=== PATIENT | female | born 1950 | race Caucasian/White ===

== ENCOUNTER → 2020-03-17 12:30 | Outpatient (CLI) | payer MEDICARE, SELFPAY ==
--- NOTE | ~2020-03-17 | MM_ITS ---
EXAMINATION: MM screening oscar BI w syd HISTORY: Screening TECHNIQUE: Craniocaudal and mediolateral oblique 3-D tomosynthesis images were obtained and synthetic 2-D images were generated. CAD analysis was submitted and interpreted. COMPARISON: Comparison to multiple prior studies sequentially, with oldest reviewed study dated 01/13. BREAST PARENCHYMAL COMPOSITION: There are scattered areas of fibroglandular density. FINDINGS: There is no evidence of suspicious mass, calcification, or architectural distortion to sugg est malignancy in either breast. There has been no suspicious interval change. IMPRESSION: 1. No mammographic evidence of malignancy. 2. Recommend routine screening mammography in one year. BI-RADS Category 1: Negative Reviewed, dictated and finalized at location A.
== END ==
PROVIDERS: PCP Family Medicine; Visit Provider Obstetrics & Gynecology
DX: Z12.31 Encounter for screening mammogram for malignant neoplasm of breast (principal)
CPT/HCPCS: 77063; 77067

== ENCOUNTER 2021-03-24 13:32 | Outpatient (CLI) | payer MEDICARE, SELFPAY ==
--- NOTE | ~2021-03-24 | MM_ITS ---
EXAMINATION: MM screening oscar BI w syd HISTORY: Screening mammogram TECHNIQUE: Craniocaudal and mediolateral oblique 3-D tomosynthesis images were obtained and synthetic 2-D images were generated. Bilateral rotated lateral CC views. CAD analysis was submitted and interp reted. COMPARISON: 03/17/2020, 02/19/2019, 01/31/2018 bilateral digital screening mammogram examinations BREAST PARENCHYMAL COMPOSITION: There are scattered areas of fibroglandular density. FINDINGS: Occasional benign low-density circumscribed opacities, stable since 02/01/2000. There is no evidence of suspicious mass, calcification, or architectural distortion to suggest malignancy in eith er breast. There has been no suspicious interval change. IMPRESSION: 1. No mammographic evidence of malignancy. 2. Recommend routine screening mammography in one year. BI-RADS Category 2: Benign finding(s). Reviewed, dictated and finalized at location A.
== END 2021-03-24 13:33 | disposition home or self-care (01) ==
LOC: ANHIMG 13:35
PROVIDERS: PCP Family Medicine; Visit Provider Obstetrics & Gynecology
DX: Z12.31 Encounter for screening mammogram for malignant neoplasm of breast (principal)
CPT/HCPCS: 77063; 77067

== ENCOUNTER 2022-07-04 09:50 | Observation (INO) | payer MEDICARE, SELFPAY ==
[2022-07-04] VITALS (31 sets, daily range): BP systolic 96–133; BP diastolic 43–92; PULSE 57–117; RESP 12–24; TEMP 36.1–36.6; O2SAT 90–100
--- NOTE | ~2022-07-04 | XR_ITS ---
EXAMINATION: XR chest 1V portable DATE: 07/04/2022 10:22 INDICATION: Seizure. TECHNIQUE: A single frontal view of the chest was obtained. COMPARISON: None. FINDINGS: The lung volumes are small. There are is mild atelectasis bilaterally. No pleural effusion or pneumothorax. The heart size is normal. IMPRESSION: 1. Small lung volumes with mild bilateral atelectasis. Reviewed, dictated and finalized at location A. ICAL AIDE
--- NOTE | ~2022-07-04 | US_ITS ---
EXAMINATION: US venous doppler [facility] DATE: 07/04/2022 23:22 INDICATION: Lower limb edema. TECHNIQUE: Grayscale ultrasound images without and with compression and Doppler ultrasound images of the bilateral lower extremity veins were obtained. COMPARISON: Ultrasound 02/06/2014 FINDINGS: The visualized portions of right common femoral vein, profunda (deep) femoral vein, femoral vein, pop liteal vein, peroneal veins, posterior tibial veins, and greater saphenous vein outflow are patent. The visualized portions of left common femoral vein, profunda femoral vein, femoral vein, popliteal v ein, peroneal veins, posterior tibial veins, and greater saphenous vein outflow are patent. IMPRESSION: 1. No deep venous thrombosis. Reviewed, dictated and finalized at location A. LOPMENT TEAM LEAD
--- NOTE | ~2022-07-04 | CT_ITS ---
EXAMINATION: CT brain wo con DATE: 07/04/2022 10:32 INDICATION: Seizure TECHNIQUE: Computed tomography (CT) of the head was performed without intravenous contrast. Sagittal and coronal reconstructions were performed. The mA was adjusted according to patient size. Iterative reconstruction technique was employed. The dose-length product was 1210.67 mGy-cm. COMPARISON: None FINDINGS: There is a poorly defined approximately 3.3 x 2.7 x 2.1 cm complex mass along the septum pellucidum e xtending to the region of the left foramen of Barrientos containing regions of soft tissue density, fluid attenuation as well as a 13 x 7 x 5 mm macroscopic fat attenuation component most likely intracrania l teratoma with differential including intracranial dermoid or less likely lipomatous transformation of neoplasm. There is a second approximately 2.6 x 2.3 x 2.1 cm intra-axial region of mixed attenuati on in the left frontal lobe underlying a sridevi hole which could represent either postoperative change along the biopsy tract or a second neoplasm which could be either primary or metastatic. There is mod erate scattered white matter hypoattenuation consistent with chronic small vessel ischemic disease. N o acute intracranial hemorrhage, acute infarction or abnormal extra axial fluid collection. Symmetric prominence of the sulci and ventricles consistent with mild to moderate age-appropriate diffuse ce rebral volume loss. Changes of bilateral intraocular lens replacement. The orbits, paranasal sinuses and mastoid air cells are normal. IMPRESSION: 1. 3.3 x 2.7 x 2.1 cm complex mass along the septum pellucidum with mixed attenuation including macro scopic likely an intracranial teratoma or dermoid with differential including less likely lipomatous transformation of other neoplasm. There is a second 2.6 x 2.3 x 2.1 cm mixed attenuation lesion in th e left frontal lobe underlying a sridevi hole which could represent postoperative change along a biopsy tract directed towards the mass along the septum pellucidum or a second independent mass with differe ntial including malignancy either primary or metastatic. Recommend correlation with prior surgical hi story and any prior outside imaging. 2. Age-related changes including mild to moderate diffuse volume loss and moderate scattered white ma tter hypoattenuation consistent with chronic small vessel ischemic disease. Reviewed, dictated and finalized at location A. D AMBASSADOR PROMOTIONAL MODEL IMPRESSION: 1. 3.3 x 2.7 x 2.1 cm complex mass along the septum pellucidum with mixed atten uation including macroscopic likely an intracranial teratoma or dermoid with di fferential including less likely lipomatous transformation of other neoplasm. T here is a second 2.6 x 2.3 x 2.1 cm mixed attenuation lesion in the left fronta l lobe underlying a sridevi hole which could represent postoperative change along a biopsy tract directed towards the mass along the septum pellucidum or a secon d independent mass with differential including malignancy either primary or met astatic. Recommend correlation with prior surgical history and any prior outsid e imaging. 2. Age-related changes including mild to moderate diffuse volume loss and moder ate scattered white matter hypoattenuation consistent with chronic small vessel ischemic disease.
--- NOTE | 2022-07-04 10:03 | ECG_ITS ---
Measurements Intervals [place] Rate: 59 P: 47 PA: 167 QRS: 8 QRSD: 82 T: 42 QT: 425 QTc: 423 Interpretive Statements SINUS BRADYCARDIA DELAYED PRECORDIAL R/S TRANSITION BASELINE ARTIFACT- I, II, III, AVR, AVF, V1-V6 BORDERLINE ECG NO PREVIOUS ECG AVAILABLE FOR COMPARISON Electronically Signed On 07-04-2022 16:11:07 RADIOTELEGRAPH OPERATOR SERVICER by Marlo Godoy D.O.
[2022-07-04] MEDS: levETIRAcetam 500MG/NACL 100ML 500 MG/100 ML BAG 400 MG IVPB (10:15)
[2022-07-04] MEDS: DEXAMETHASONE SOD PHOS INJ 4 MG/ML VIAL IV PUSH ×2 (10:15→23:19)
[2022-07-04 11:06] LABS: Basophils Percent Auto 0.3 % (0.2-1.2); Eosinophils Percent Auto 0.4 % (0-4.4); Hematocrit 34.1 % (37.0-47.0); Hemoglobin 11.5 g/dL (12.0-15.0); Immature Granulocyte Percent A 1.3 % (0-0.5); Lymphocytes Absolute Auto 0.83 K/mm3 (0.9-3.2); Lymphocytes Percent Auto 10.5 % (18.3-44.2); Mean Corpuscular HGB Conc 33.7 g/dl (32-36); Mean Corpuscular Hemoglobin 34.2 pg (26-34); Mean Corpuscular Volume 101.5 fl (80-100); Mean Platelet Volume 10.4 fl (7.4-10.4); Monocytes Absolute Auto 0.8 K/mm3 (0.1-0.6); Monocytes Percent Auto 9.6 % (2.6-8.5); Neutrophils Absolute Auto 6.2 K/mm3 (1.3-6.7); Neutrophils Percent Auto 77.9 % (45.5-73.1); Platelet Count Result 144 k/mm3 (150-375); Red Blood Count 3.36 M/mm3 (4.2-5.4); Red Cell Distribution Width 15.2 % (11.5-14.5); White Blood Count 7.9 K/mm3 (4.5-10.0)
[2022-07-04 11:15] LABS: Lactic Acid Reflex 1.2 mmol/L (0.7-2.0)
[2022-07-04 11:17] LABS: INR 1.1; Prothrombin Time 13.8 Seconds (11.1-14.7)
[2022-07-04 11:18] LABS: Partial Thromboplastin Time 23.4 SECONDS (22.3-36.8)
[2022-07-04 11:21] LABS: Alanine Aminotransferase 39 U/L (6-35); Albumin Level 2.4 g/dL (3.5-5.1); Alkaline Phosphatase 47 U/L (38-126); Anion Gap 4 mmol/L (8-16); Aspartate Amino Transferase 28 U/L (14-36); Bilirubin,Total 0.5 mg/dL (0.2-1.3); Blood Urea Nitrogen 14 mg/dL (7-17); Calcium 5.8 mg/dL (8.4-10.2); Carbon Dioxide 23 mmol/L (22-30); Chloride 113 mmol/L (98-107); Estimated Glomerular Filt Rate > 60; Glucose 75 mg/dL (65-110); Potassium 2.4 mmol/L (3.4-5.0); Sodium 140 mmol/L (137-145)
[2022-07-04 12:17] LABS: Appearance Urine Clear (Clear); Bilirubin Urine Negative (Negative); Blood Urine Negative (Negative); Color Urine Yellow (Yellow); Glucose Urine UA Negative (Negative); Ketones Urine Negative (Negative); Leukocyte Esterase Ur Negative LEU/UL (Negative); Nitrate Urine Negative (Negative); Protein Urine Negative (Negative); pH Urine 7.5 (5.0-9.0)
[2022-07-04 12:24] LABS: Mucus Urine Rare /lpf; RBC Urine 0-2 /hpf (0-2); WBC Urine 0-3 /hpf
[2022-07-04 12:25] LABS: Add Urine Microscopic? YES
[2022-07-04] MEDS: POTASSIUM CHLORIDE INJ 40 MEQ in SODIUM CHLORIDE 0.9% IV 500 ML 130 MEQ IVPB (12:31)
[2022-07-04] MEDS: POTASSIUM CHLORIDE 20 MEQ PACKET (FOR LIQUID) 40 MEQ PO (12:31)
[2022-07-04 12:51] LABS: Influenza A QL RT-PCR Negative (Negative); Influenza B QL RT-PCR Negative (Negative); SARS-CoV-2 RNA PCR Negative
--- NOTE | 2022-07-04 13:03 | ED.SEIZURE ---
HPI - Seizure General Chief Complaint: Seizure Stated Complaint: Seizures Time Seen by Provider: 07/04/22 09:50 History of Present Illness HPI Narrative: Patient is a 71-year-old female who presents ER status post seizure. Patient had a 5-minute seizure where the right side of her body was shaking witnessed by family. Patient has history of 2 brain tumors that have been treated with radiation and chemotherapy. They have not yet had reevaluation to see if they shrunk. Patient takes Keppra 500 mg twice a day. She also takes Decadron 4 mg in the morning and 2 mg in the afternoon. She did not take her morning doses today. Patient has chronic right-sided deficits after having an intracranial hemorrhage after a brain biopsy. History obtained from and daughter. reports patient only says 3 words a day. Related Data Home Medications Medication Instructions Recorded Confirmed dexamethasone 4 mg tablet 4 mg PO DAILY 07/04/22 07/04/22 famotidine 20 mg tablet 20 mg PO BID 07/04/22 07/04/22 levetiracetam 500 mg tablet for 500 mg PO BID 07/04/22 07/04/22 oral suspension (Spritam) metoprolol tartrate 25 mg tablet 25 mg PO BID 07/04/22 07/04/22 Allergies Allergy/AdvReac Type Severity Reaction Status Date / Time BANDAIDS Allergy Mild RASH Uncoded 12/04/02 07:00 Review of Systems Review of Systems: ROS unobtainable: Yes unobtainable due to mental status PMFSH Past Medical History Medical History (Updated 07/04/22 @ 22:26 by Annita Villagomez PA-C) Brain cancer (12/2021) Malignant melanoma of left upper extremity (1987) Surgical History Surgical History (Updated 07/04/22 @ 22:09 by Annita Villagomez PA-C) History of arthroplasty of right knee History of benign breast biopsy (1981) History of carpal tunnel release (1998) History of melanoma excision (1987) Left arm. Family History Family History (Updated 07/04/22 @ 22:21 by Annita Villagomez PA-C) Other Family history unknown Social History Social History (Updated 07/04/22 @ 22:21 by Annita Villagomez PA-C) Social History: Surrogate medical decision maker: Ever Griffin, spouse. Code status: Do not resuscitate. Smoking status: Former smoker Tobacco type: cigarettes Alcohol intake: never Substance use: never Lack of Transportation: No Lack of Food: Never True Current Housing: I Have Housing Concerned About Future Housing: No Difficulty Paying Gas/Electric Bills: No Difficulty Paying for Meds: No Currently Unemployed: No Education: High School Diploma/GED Difficulty w/ Childcare or Family Care: No Spiritual care concerns: No Exam Narrative: GENERAL: Chronically ill-appearing, well-nourished, and in no acute distress. HEAD: Normocephalic, atraumatic. EYES: PERRL and EOMI. ENT: Mucous membranes moist. CHEST: Clear to auscultation. No respiratory distress. HEART: Regular rate and rhythm. Normal peripheral pulses. ABDOMEN: Soft, nontender, nondistended. EXTREMITIES: Contractures of right upper and right lower extremity. Purposeful movement on the left side. SKIN: Warm, dry, no rash. NEURO: Awake and alert but unable to answer orientation questions. Course Course Emergency Course: Family informed of imaging and lab results. Patient is having her potassium replaced. Discussed case with Dr. Cassidy with oncology at [facility]. No recommendations for modification of steroid or Keppra at this time. She will email the patient's primary oncologist and will contact us should the Keppra need to be changed but she feels the masses have decreased in size when compared to an MRI on 05/18/2022. Shortly after arrival patient received IV Keppra as well as IV Decadron as she did not take her morning medication. Patient has been accepted to hospitalist service. 1402: I received a return phone call from [facility] and patient's primary oncologist would like patient's Keppra increased to 1000 mg twice a day. Vital Signs Vital
[2022-07-04 17:29] LABS: Albumin Level 4.2 g/dL (3.5-5.1); Anion Gap 8 mmol/L (8-16); Blood Urea Nitrogen 16 mg/dL (7-17); Calcium 8.9 mg/dL (8.4-10.2); Carbon Dioxide 23 mmol/L (22-30); Chloride 104 mmol/L (98-107); Estimated Glomerular Filt Rate > 60; Glucose 157 mg/dL (65-110); Phosphorus 3.6 mg/dL (2.5-4.5); Potassium 4.7 mmol/L (3.4-5.0); Sodium 135 mmol/L (137-145)
--- NOTE | 2022-07-04 19:00 | PM.IMHP ---
H&P: HPI History of Present Illness Date/Time: 07/04/22 19:00 Chief Complaint: Seizure activity. Narrative: This is an unfortunate 71-year-old female with brain cancer who presented to the emergency department via EMS from home for evaluation of seizure activity. The patient's and 2 of her sisters provide the following history given the patient's inability to do so. She apparently demonstrate seizure activity in December 2021 which prompted a workup where she was noted to have 2 masses in her brain. 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 The biopsy was complicated by a intraparenchymal hemorrhage in which the patient was left with right hemiplegia. She was started on oral chemotherapy pill but was unable to swallow it and that was discontinued as the pill cannot be given any other way (unable to be crushed). She has received several Avastin treatments and she had radiation for 3 weeks in the fall which has since been discontinued. Family members note that she did not tolerate the radiation well and she has gone downhill since that time. She is bed and wheelchair-bound and family members transfer her with the use of a Red lift. She is still able to eat though they do have to help her on occasion. She is unable to communicate but a few words at a time and cannot express her needs. In the last several weeks her oncologist tapered her dexamethasone dose from 4 mg b.i.d. to 4 mg daily. Since the weekend family members have noticed that she has become less responsive and is sleeping more. They have also noticed almost daily episodes of fluttering of her eyelids or distortion of her mouth for brief periods of time. This morning not long after getting up she was found slumped in her wheelchair with full body tremors lasting approximately 5 minutes. Several minutes thereafter she had recurrent symptoms and EMS was summoned. Vital signs were stable on arrival to the ED. Head CT showed 2 brain masses which have apparently decreased a bit in size according to the oncologist whom the ED physician spoke with earlier today. She received levetiracetam and dexamethasone IV in the ED and her oncologist recommends increasing her levetiracetam dose to 1000 mg b.i.d. her labs were significant for a sodium of 140, potassium 2.4, chloride 113, creatinine 0.20, calcium 5.8, total protein 4.0, albumin 2.4, WBCs 7.9, hemoglobin 11.5. She was given 40 mEq K rider and 40 mEq KCL p.o. (she was reportedly alert enough to swallow the pill). Repeat BMP not quite 4 hours thereafter showed a potassium of 4.7 (K rider was still infusing), sodium 135, chloride 104, creatinine 0.30, calcium 8.9, albumin 4.2. It is thus assumed that the 1st lab draw was erroneous. She is being admitted in this setting for closer monitoring. Review of Systems Review of Systems: Unable to obtain given clinical condition. [facility] Past Medical History Medical History (Updated 07/04/22 @ 22:26 by Annita Villagomez PA-C) Brain cancer (12/2021) Malignant melanoma of left upper extremity (1987) Surgical History Surgical History (Updated 07/04/22 @ 22:09 by Annita Villagomez PA-C) History of arthroplasty of right knee History of benign breast biopsy (1981) History of carpal tunnel release (1998) History of melanoma excision (1987) Left arm. Family History Family History (Updated 07/04/22 @ 22:21 by Annita Villagomez PA-C) Other Family history unknown Social History Social History (Updated 07/04/22 @ 22:21 by Annita Villagomez PA-C) Social History: Surrogate medical decision maker: Ever Griffin, spouse. Code status: Do not resuscitate. Smoking status: Former smoker Tobacco type: cigarettes Alcohol intake: never Substance use: never Lack of Transportation: No Lack of Food: Never True Current Housing: I Have Housing Concerned About Future Housing: No Difficulty Paying Gas/Electric Bills
[2022-07-04] MEDS: levETIRAcetam 1000MG/NACL100ML 1,000 MG/100 ML BAG 400 MG IVPB (23:19)
[2022-07-05] VITALS: PULSE 77
[2022-07-05 04:00] VITALS: PULSE 60
[2022-07-05 06:00] VITALS: BP 162/98; PULSE 74; RESP 18; TEMP 36; O2SAT 97
[2022-07-05 06:40] LABS: Anion Gap 6 mmol/L (8-16); Blood Urea Nitrogen 15 mg/dL (7-17); Calcium 8.2 mg/dL (8.4-10.2); Carbon Dioxide 25 mmol/L (22-30); Chloride 106 mmol/L (98-107); Estimated Glomerular Filt Rate > 60; Glucose 127 mg/dL (65-110); Magnesium 2.2 mg/dL (1.6-2.3); Potassium 4.1 mmol/L (3.4-5.0); Sodium 137 mmol/L (137-145)
[2022-07-05 08:00] VITALS: PULSE 77
[2022-07-05] MEDS: levETIRAcetam 1000MG/NACL100ML 1,000 MG/100 ML BAG 400 MG IVPB (08:16)
[2022-07-05] MEDS: DEXAMETHASONE SOD PHOS INJ 4 MG/ML VIAL IV PUSH (08:17)
[2022-07-05] MEDS: FAMOTIDINE 20 MG/2 ML VIAL IV PUSH (08:18)
[2022-07-05 11:06] VITALS: O2SAT 96
[2022-07-05 12:00] VITALS: PULSE 77
--- NOTE | 2022-07-05 12:03 | PM.DS ---
DS: Admitting Diagnosis Discharge Date 07/05/22 Admitting Diagnosis seizure activity DS: Discharge Diagnosis Discharge Diagnosis (1) Seizure: Code(s): R56.9 - Unspecified convulsions Status: Acute (2) Macrocytic anemia: Code(s): D53.9 - Nutritional anemia, unspecified Status: Acute (3) Lab findings of hypoxemia: Code(s): R09.02 - Hypoxemia Status: Acute (4) Brain cancer: Onset Date: 12/2021 Code(s): C71.9 - Malignant neoplasm of brain, unspecified Status: Acute Plan The patient presented to the emergency department via EMS from home for evaluation after a seizure. Labs, imaging, EKG, and reports were personally reviewed. She was given IV levetiracetam 500 mg and IV dexamethasone 4 mg on arrival. She has not had any generalized seizures since that time but appears as though she is having some partial seizures as detailed in HPI. ED physician spoke with her oncologist and they recommend increasing her levetiracetam to 1000 mg b.i.d.. Increase dexamethasone back to 4 mg twice a day. She was given 40 mEq of both p.o. and IV potassium with significant increase in her potassium. Repeat BMP also showed normalization of other labs which were abnormal on initial lab draw. Given the unusual labs (very low calcium and albumin) I think the 1st lab draw was likely contaminated and the results were probably erroneous. Labs also show a mild, macrocytic anemia (no further workup being pursued at this time). I had a lengthy discussion with the patient's and 2 of her sisters at bedside. has decided to change the patient's code status to do not resuscitate. He is aware of her poor prognosis as she is not receiving active treatment for her brain cancer. They request [facility] consult tomorrow to discuss options. DS: Summary Hospital Course Hospital Course: 71-year-old female with brain cancer who presented to the emergency department via EMS from home for evaluation of seizure activity. The patient's and 2 of her sisters provide the following history given the patient's inability to do so. She apparently demonstrate seizure activity in December 2021 which prompted a workup where she was noted to have 2 masses in her brain. 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 The biopsy was complicated by a intraparenchymal hemorrhage in which the patient was left with right hemiplegia. She was started on oral chemotherapy pill but was unable to swallow it and that was discontinued as the pill cannot be given any other way (unable to be crushed). She has received several Avastin treatments and she had radiation for 3 weeks in the fall which has since been discontinued. Family members note that she did not tolerate the radiation well and she has gone downhill since that time. She is bed and wheelchair-bound and family members transfer her with the use of a Red lift. She is still able to eat though they do have to help her on occasion. She is unable to communicate but a few words at a time and cannot express her needs. In the last several weeks her oncologist tapered her dexamethasone dose from 4 mg b.i.d. to 4 mg daily. Since the weekend family members have noticed that she has become less responsive and is sleeping more. They have also noticed almost daily episodes of fluttering of her eyelids or distortion of her mouth for brief periods of time. This morning not long after getting up she was found slumped in her wheelchair with full body tremors lasting approximately 5 minutes. Several minutes thereafter she had recurrent symptoms and EMS was summoned. Vital signs were stable on arrival to the ED. Head CT showed 2 brain masses which have apparently decreased a bit in size according to the oncologist whom the ED physician spoke with earlier today. She received levetiracetam and dexamethasone IV in the ED. Her oncologist was grace
== END 2022-07-05 14:30 | disposition home health service (06) ==
LOC: ANHED 14:02 → ANH3MEDSUR 14:39
PROVIDERS: Physician Assistant; Admitting Provider Internal Medicine; Emergency Provider Emergency Medicine; PCP Family Medicine; Visit Provider Student in an Organized Health Care Education/Training Program
DX: R56.9 Unspecified convulsions (principal); D53.9 Nutritional anemia, unspecified; R09.02 Hypoxemia; C71.9 Malignant neoplasm of brain, unspecified; Z20.822 Contact with and (suspected) exposure to COVID-19; R90.82 White matter disease, unspecified; R60.0 Localized edema; J98.11 Atelectasis; E87.6 Hypokalemia; R00.1 Bradycardia, unspecified; Z87.891 Personal history of nicotine dependence; Z92.3 Personal history of irradiation; Z92.21 Personal history of antineoplastic chemotherapy; Z79.899 Other long term (current) drug therapy
CPT/HCPCS: 36415; 70450; 71045; 80048; 80053; 80069; 81001; 83605; 83735; 85025; 85610; 85730; 87636; 93005; 93970; 96365; 96375; 96376; 99285; A9270; G0378; J1100; J1953; J3480; J7040